=== PATIENT | female | born 1950 | race Caucasian/White ===

== ENCOUNTER → 2020-06-11 | Outpatient (CLI) | payer MEDICARE, OTHER ==
[2020-06-12 08:15] LABS: RHEUMATOID ARTHRITIS FACTOR <10.0 IU/mL (0.0-13.9)
[2020-06-13 00:11] LABS: CCP ANTIBODIES IGG/IGA 20 units (0-19)
== END ==
LOC: LAB 09:52
PROVIDERS: Nurse Practitioner Family
DX: M25.50 Pain in unspecified joint (principal); D89.9 Disorder involving the immune mechanism, unspecified; R76.8 Other specified abnormal immunological findings in serum
CPT/HCPCS: 36415; 83520; 85652; 86140; 86200; 86431

== ENCOUNTER → 2021-01-07 | Outpatient (CLI) | payer MEDICARE, OTHER | LOC: HEART CORB 12:47 | DX: I25.10 Atherosclerotic heart disease of native coronary artery without angina pectoris (principal); I25.5 Ischemic cardiomyopathy; I08.1 Rheumatic disorders of both mitral and tricuspid valves; I51.7 Cardiomegaly; I27.20 Pulmonary hypertension, unspecified ==